=== PATIENT | female | born 1965 | race Hispanic/Latino ===

== ENCOUNTER 2019-08-22 17:30 | Emergency (ER) | payer OTHER ==
[2019-08-22] MEDS ORDERED: LIDOCAINE (4%) 40 MG/ML TOPICAL SOLN 50 ML BOTTLE TP ONE (18:02)
[2019-08-22] MEDS ORDERED: SODIUM CHLORIDE 0.9% 500 ML 500 ML IV ONE (18:02)
[2019-08-22] MEDS ORDERED: METOCLOPRAMIDE 10 MG/2 ML INJ IV ONE (18:02)
[2019-08-22] MEDS ORDERED: diphenhydrAMINE 50 MG/ML VIAL IV ONE (18:02)
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
[2019-08-22 18:44] LABS: Hematocrit 42.1 % (30.3-42.9); Hemoglobin 14.4 gm/dl (10.1-14.3); Mean Corpuscular HGB Conc 34 % (30-34); Mean Corpuscular Volume 94 fl (79-97); Platelet Count 341 K/mm3 (140-440); Red Blood Count 4.49 M/mm3 (3.65-5.03); Red Cell Distribution Width 12.6 % (13.2-15.2)
[2019-08-22 18:52] LABS: INR 0.88 (0.87-1.13)
[2019-08-22 18:56] LABS: Albumin 4.6 g/dL (3.9-5); Calcium 10.1 mg/dL (8.4-10.2)
--- NOTE | 2019-08-22 19:51 | Cat Scan Report ---
CT HEAD WITHOUT CONTRAST INDICATION / CLINICAL INFORMATION: Headache. History of aneurysm. TECHNIQUE: All CT scans at this location are performed using CT dose reduction for ALARA by means of automated e xposure control. COMPARISON: None available. FINDINGS: HEMORRHAGE: No evidence of intracranial hemorrhage or extra-axial fluid collection. EXTRA-AXIAL SPACES: Cortical sulci, sylvian fissures and basilar cisterns have an unremarkable appear ance. VENTRICULAR SYSTEM: The ventricular system is of normal size and configuration. CEREBRAL PARENCHYMA: An area of encephalomalacia is observed along the inferior aspect of the right f rontal lobe. The appearance suggests a posttraumatic etiology. Several punctate, dense intracranial c alcifications are identified. These are present in the left superior frontal sulcus and along the pos terior margin of the frontal horn of the left lateral ventricle. These may represent postinflammatory changes. Is there history of cysticercosis There is no indication of recent infarction. MIDLINE SHIFT OR HERNIATION: There is no mass effect. CEREBELLUM / BRAINSTEM: Brainstem and cerebellum have an unremarkable appearance. INTRACRANIAL VESSELS:No abnormalities are identified on this noncontrast head CT. ORBITS: visualized portions of the orbits have an unremarkable appearance. SOFT TISSUES of HEAD: No significant abnormality. CALVARIUM: Evaluation of bone windows reveals no abnormalities. PARANASAL SINUSES / MASTOID AIR CELLS: Paranasal sinuses are free from inflammatory mucosal disease. Mastoid air cells are normally pneumatized. ADDITIONAL FINDINGS: Patient provides history of intercranial aneurysm. There is no indication of ane urysm surgery. There is no evidence of an aneurysm has been treated by endovascular coiling. IMPRESSION: 1. Evidence of remote brain injury right frontal lobe. The Location of this finding suggests this is related to remote trauma. Correlation with clinical history is advised. 2. Several dense intracranial calcifications are noted as described above. 3. No acute intracranial abnormalities are identified.. Signer Name: Lan Fong MD Signed: 08/22/2019 7:47 PM Workstation Name: [id number]
--- NOTE | 2019-08-22 20:34 | Cat Scan Report ---
CTA head with intravenous contrast CLINICAL HISTORY: MAIN: ureña, hx of aneurysm 100cc of omnipaque 350 TECHNIQUE: 0.625 mm thick contiguous axial scans were obtained from the skull base to the skull vertex during r apid bolus administration of intravenous contrast material. Multiplanar reconstructions were produced in the coronal and sagittal planes. In addition 3 plane MIP instructions were produced and reviewed for this report. The axial source images and reconstructed images were reviewed for this report. CONTRAST DOSE REPORT: Omnipaque 350: 100 ml administered intravenously. All CT scans at this location are performed using CT dose reduction for ALARA by means of automated e xposure control. FINDINGS: Internal carotid arteries:Reyna, cavernous, opthalmic, clinoid and supraclinoid segments of the ICAs have an unremarkable appearance. Middle cerebral arteries: Symmetrical appearing M1 segments are noted bilaterally. No abnormalities a re seen along the course of the insular or opercular branches of the middle cerebral arteries. Anterior cerebral arteries: Bilaterally symmetrical A1 segments of the anterior cerebral arteries are noted. Anterior communicating artery is not clearly demonstrated. A too segments and pericallosal po rtions of the anterior cerebral arteries have an unremarkable appearance. Vertebral arteries: Balanced vertebral arteries both contribute to the basilar artery origin. Basilar artery: Basilar artery has an unremarkable appearance. Posterior cerebral arteries: origin of the right posterior cerebral arteries incidentally noted . Posterior cerebral arteries have an otherwise unremarkable appearance. Dural sinuses: Dural venous sinuses are well demonstrated on this exam. There is no evidence of dural sinus thrombosis. IMPRESSION: 1. No significant abnormality on CTA head. Patient has a history of aneurysm. I do not identify an an eurysm on this examination. Signer Name: Lan Fong MD Signed: 08/22/2019 8:30 PM Workstation Name: [id number]
--- NOTE | 2019-08-22 20:39 | Cat Scan Report ---
CTA neck without and with intravenous contrast material CLINICAL HISTORY: MAIN: ureña, hx of aneurysm 100cc of omnipaque 350 TECHNIQUE: Following acquisition of a timing bolus 0.625 mm thick contiguous axial scans were obtained from aort ic arch to the skull base during rapid bolus intravenous contrast infusion. In addition to evaluation of axial source images multiplanar reconstructions were produced and reviewed for this report. 3 thuan ne MIP reconstructions were produced and reviewed. FINDINGS: Thoracic aorta:No abnormalities are identified along the course of the thoracic aorta..The origins of the great vessels have an unremarkable appearance. Brachiocephalic artery, left common carotid arter y origin and left subclavian artery all have an unremarkable appearance. Right carotid artery:No abnormalities are seen along the course of the RCCA, at the right carotid bif urcation or along the cervical portions of the MARI. Left carotid artery: No abnormalities are noted along the course of the left common carotid artery, a t the left carotid bifurcaiton or along th ethe course of the cervical segments of the LICA. Posterior circulation:The vertebral arteries have an unremarkable appearance. Both vertebral arteries contribute to the basilar artery origin. The basilar artery has an unremarkable appearance. The degree of stenosis, if any, is determined utilizing NASCET like criteria. In this case there is no indication of hemodynamically significant stenosis at the carotid bifurcations or elsewhere. Evaluation of the nonvascular soft tissue structures reveal no abnormality. There is no indication of cervical lymphadenopathy. No abnormalities are seen along the course of the airway. Visualized porti ons of the parotid glands and the submandibular salivary glands have a normal appearance. Thyroid gla nd has a normal appearance. Evaluation of the lung apices reveals no evidence of lung nodule or infil trate. Evaluation of the cervical spine is remarkable for degenerative changes at the C5-6 level where loss of disc height and anterior osteophyte formation are noted. IMPRESSION: 1. No abnormalities are identified on CTA neck. CTA neck. Contrast dose report: Omnipaque 350: 100 ml, administered intravenously All CT examinations performed at this facility utilize modulated dose reduction, iterative reconstruc tion or weight-based dosing, as appropriate, to obtain a radiation dose which is as low as can reason ably be achieved. Signer Name: Lan Fong MD Signed: 08/22/2019 8:34 PM Workstation Name: [id number]
[2019-08-22] MEDS ORDERED: fentaNYL 100 MCG/2 ML INJ IV ONE (20:46)
[2019-08-22] MEDS ORDERED: LIDOCAINE 2%/EPINEPHRINE 1:200,000 VIAL (20 ML) INFILTRATI ONE (20:46)
[2019-08-22] MEDS ORDERED: LIDOCAINE 2%/EPINEPHRINE 1:100,000 VIAL (20 ML) INFILTRATI ONE (20:47)
[2019-08-22] MEDS ORDERED: fentaNYL 100 MCG/2 ML INJ ONE (20:47)
--- NOTE | 2019-08-22 22:08 | Procedure Note ---
Date of procedure: 08/22/19 Pre-op diagnosis: headache Post-op diagnosis: same Position: sitting Anesthesia: 1 % Lidocaine Sedation: none Needle size: 22ga, 21 ga, 20 ga Needle length: 6 Interspace: L3-4 Number of attempts: 1 Opening pressure: not done Fluids mls collected: 8 Fluid description: clear Complications: No Patient tolerance: pt tolerated procedure well Comments: Anesthesia consulted to ED room 2 for lumbar wafer abrading machine tender after 2 failed attempts. Procedure performed by: RON INGRAM Condition: stable
[2019-08-22 22:11] VITALS: BP 99/58
[2019-08-22 22:20] LABS: Glucose,CSF 88 mg/dL
[2019-08-22 22:41] LABS: Appearance,CSF Clear
[2019-08-22 22:42] LABS: Appearance,CSF Clear; Red Blood Cell,CSF 3 /mm3 (0-0); Red Blood Cell,CSF 4 /mm3 (0-0); White Blood Cell,CSF 2 /mm3 (1-10); White Blood Cell,CSF 6 /mm3 (1-10)
[2019-08-22 23:03] LABS: Basophils CSF 0 %; Total Cells Counted 10 /mm3
[2019-08-22 23:05] LABS: Total Cells Counted 10 /mm3
[2019-08-22 23:06] LABS: Basophils CSF 0 %
== END 2019-08-23 | disposition home or self-care (01) ==
LOC: ED 17:30
DX: R51 Headache (principal); E11.9 Type 2 diabetes mellitus without complications; Z79.899 Other long term (current) drug therapy; Z87.820 Personal history of traumatic brain injury
CPT/HCPCS: 36415; 70450; 70496; 70498; 80053; 82550; 82947; 83735; 84160; 85027; 85610; 85730; 89051; 96374; 96375; 99284; J1200; J2765; J3010; J7040; Q9967

== ENCOUNTER 2020-07-09 16:43 | Emergency (ER) | payer OTHER ==
[2020-07-09 17:01] VITALS: BP 122/77
[2020-07-09] MEDS ORDERED: SODIUM CHLORIDE 0.9% 1000 ML 1,000 ML IV ONE (17:30)
[2020-07-09] MEDS ORDERED: ONDANSETRON 4 MG/2 ML INJ IV ONE (17:30)
[2020-07-09] MEDS ORDERED: MORPHINE 4 MG/1 ML INJ IV ONE (17:30)
--- NOTE | 2020-07-09 18:00 | Cat Scan Report ---
CT ABDOMEN AND PELVIS WITHOUT CONTRAST HISTORY: bilateral flank pain, left>right, radiates to abd. COMPARISON: None. TECHNIQUE: CT images of the abdomen and pelvis were obtained without administration of intravenous co ntrast. All CT scans at this location are performed using CT dose reduction for ALARA by means of au tomated exposure control. FINDINGS: Lungs/bones: Lung bases are clear. There are degenerative changes in the spine and pelvis with no ac shilo osseous abnormality. Abdomen/pelvis: There is no radiopaque urinary stone disease, mass, cyst, or hydronephrosis. The liver, gallbladder, spleen, pancreas, adrenals, and proximal GI tract appear unremarkable. Urinary bladder is unremarkable. No pelvic free fluid. No acute colonic abnormality identified. IMPRESSION: 1. No acute abnormality identified. Signer Name: Dioni Perez MD Signed: 07/09/2020 5:56 PM Workstation Name: [id number]
[2020-07-09 18:18] LABS: Basophils % (Auto) 0.3 % (0.0-1.8); Eosinophils # (Auto) 0.1 K/mm3 (0.0-0.4); Eosinophils % (Auto) 1.4 % (0.0-4.3); Hematocrit 38.9 % (30.3-42.9); Hemoglobin 13.2 gm/dl (10.1-14.3); Lymphocytes # (Auto) 2.9 K/mm3 (1.2-5.4); Lymphocytes % (Auto) 28.9 % (13.4-35.0); Mean Corpuscular HGB Conc 34 % (30-34); Mean Corpuscular Volume 95 fl (79-97); Monocytes # (Auto) 0.7 K/mm3 (0.0-0.8); Monocytes % (Auto) 6.8 % (0.0-7.3); Platelet Count 341 K/mm3 (140-440); Red Blood Count 4.11 M/mm3 (3.65-5.03); Red Cell Distribution Width 12.6 % (13.2-15.2)
--- NOTE | 2020-07-09 18:23 | Emergency Department Report ---
ED Abdominal Pain HPI - General Chief Complaint: Abdominal Pain Stated Complaint: STOMACH/BACK PAIN Time Seen by Provider: 07/09/20 17:18 Source: patient, family, production wood craftsman Mode of arrival: Ambulatory Limitations: Language Barrier - History of Present Illness Initial Comments: pts used as croatian interpretation with pts permission pt is a 54 yo female who presents to the ED with c/o bilateral flank pain that radiates to the abdomen that began two weeks ago. she states that the pain has worsened in the last few days. she has associated nausea. she denies any fever, v/d, urinary symptoms, abnormal vaginal discharge. she states she went to her PCP and they were concerned for nephrolithiasis and they sent her to have an outpatient CT but has not received her results, she presents to the ED due to continued pain. past abdominal surgical history of oopherectomy and salpinectomy due to ovarian cysts. no allergies to meds. Severity scale (0 -10): 7 - Related Data Previous Rx's Medication Instructions Recorded Last Taken Type Butalb/Acetamin/Caff 50-325-40 1 each PO Q4H PRN #15 tablet 08/22/19 Unknown Rx [Fioricet 50-325-40] Metoclopramide [Reglan] 10 mg PO QID PRN #20 tab 08/22/19 Unknown Rx Ondansetron [Zofran Odt] 4 mg PO Q8HR PRN #10 tab.rapdis 07/09/20 Unknown Rx traMADoL [Ultram 50 MG tab] 50 mg PO Q6HR PRN #10 tablet 07/09/20 Unknown Rx Allergies Allergy/AdvReac Type Severity Reaction Status Date / Time No Known Allergies Allergy Unverified 08/22/19 17:33 ED Review of Systems ROS: Stated complaint: STOMACH/BACK PAIN Other details as noted in HPI Comment: All other systems reviewed and negative ED Past Medical Hx - Past Medical History Previous Medical History?: Yes Additional medical history: ANEURYSM (brain) - Surgical History Past Surgical History?: Yes Additional Surgical History: ovaries removed - Social History Smoking Status: Never Smoker Substance Use Type: None - Medications Home Medications: Home Medications Medication Instructions Recorded Confirmed Last Taken Type Butalb/Acetamin/Caff 50-325-40 1 each PO Q4H PRN #15 tablet 08/22/19 Unknown Rx [Fioricet 50-325-40] Metoclopramide [Reglan] 10 mg PO QID PRN #20 tab 08/22/19 Unknown Rx Ondansetron [Zofran Odt] 4 mg PO Q8HR PRN #10 tab.rapdis 07/09/20 Unknown Rx traMADoL [Ultram 50 MG tab] 50 mg PO Q6HR PRN #10 tablet 07/09/20 Unknown Rx ED Physical Exam - General Limitations: Language Barrier General appearance: alert, in no apparent distress - Head Head exam: Present: atraumatic, normocephalic - Eye Eye exam: Present: normal appearance - ENT ENT exam: Present: mucous membranes moist - Respiratory Respiratory exam: Present: normal lung sounds bilaterally. Absent: respiratory distress, wheezes, rales, rhonchi, stridor, chest wall tenderness, accessory muscle use, decreased breath sounds, prolonged expiratory - Cardiovascular Cardiovascular Exam: Present: regular rate, normal rhythm, normal heart sounds. Absent: systolic murmur, diastolic murmur, rubs, gallop - GI/Abdominal GI/Abdominal exam: Present: soft, tenderness (mild generalized), normal bowel sounds. Absent: distended, guarding, rebound, rigid - Back Exam Back exam: Present: other (CVAT left greater than right ) - Neurological Exam Neurological exam: Present: alert, oriented X3 - Psychiatric Psychiatric exam: Present: normal affect, normal mood - Skin Skin exam: Present: warm, dry, intact ED Course Vital Signs 07/09/20 16:57 Temperature 98.1 F Pulse Rate 82 Respiratory 18 Rate Blood Pressure 122/77 O2 Sat by Pulse 99 Oximetry ED Medical Decision Making - Lab Data Result diagrams: 07/09/20 18:03 07/09/20 18:03 Lab Results 07/09/20 07/09/20 07/09/20 Range/Units 18:03 18:03 19:03 WBC 10.1 (4.5-11.0) K/mm3 RBC 4.11 (3.65-5.03) M/mm3 Hgb 13.2 (10.1-14.3) gm/dl Hct 38.9 (30.3-42.9) % MCV 95 (79-97) fl MCH 32 (28-32) pg MCHC 34 (30-34) % RDW 12.6 L (13.2-15.2) % Plt Count 341 (140-440) K/mm3 Lymph % (Auto) 28.9 (13.4-35.0) % [place] % (Auto) 6.8 (0.0-7.3) % Eos % (Auto) 1.4 (0.0-4.3) % Baso % (Auto) 0.3 (0.0-1.8) % Lymph # (Auto) 2.9 (1.2-5.4) K/mm3 [place] # (Auto) 0.7 (0.0-0.8) K/mm3 Eos # (Auto) 0.1 (0.0-0.4) K/mm3 Baso # (Auto) 0.0 (0.0-0.1) K/mm3 Seg Neutrophils % 62.6 (40.0-70.0) % Seg Neutrophils # 6.3 (1.8-7.7) K/mm3 Sodium 125 L (137-145) mmol/L Potassium 4.4 (3.6-5.0) mmol/L Chloride 92.8 L (98-107) mmol/L Carbon Dioxide 19 L (22-30) mmol/L Anion Gap 18 mmol/L BUN 13 (7-17) mg/dL Creatinine 1.0 (0.6-1.2) mg/dL Estimated GFR 58 ml/min BUN/Creatinine Ratio 13 % Glucose 130 H (65-100) mg/dL Calcium 9.8 (8.4-10.2) mg/dL Total Bilirubin 0.30 (0.1-1.2) mg/dL AST 19 (5-40) units/L ALT 12 (7-56) units/L Alkaline Phosphatase 84 (35-129) units/L Total Protein 7.4 (6.3-8.2) g/dL Albumin 4.5 (3.9-5) g/dL Albumin/Globulin Ratio 1.6 % Lipase 56 (13-60) units/L Urine Color Colorless (Yellow) Urine Turbidity Clear (Clear) Urine pH 5.0 (5.0-7.0) Ur Specific [place] 1.002 L (1.003-1.030) Urine Protein <15 mg/dl (Negative) mg/dL Urine Glucose (UA) Neg (Negative) mg/dL Urine Ketones Neg (Negative) mg/dL Urine Blood Mod (Negative) Urine Nitrite Neg (Negative) Urine Bilirubin Neg (Negative) Urine Urobilinogen < 2.0 (<2.0) mg/dL Ur Leukocyte Esterase Neg (Negative) Urine WBC (Auto) 1.0 (0.0-6.0) /HPF Urine RBC (Auto) < 1.0 (0.0-6.0) /HPF - Radiology Data Radiology results: report reviewed Ordering Physician: JESSEE YAN Date of Service: 07/09/20 Procedure(s): CT abdomen pelvis wo con Accession Number(s): [id number] cc: JESSEE YAN CT ABDOMEN AND PELVIS WITHOUT CONTRAST HISTORY: bilateral flank pain, left>right, radiates to abd. COMPARISON: None. TECHNIQUE: CT images of the abdomen and pelvis were obtained without administration of intravenous contrast. All CT scans at this location are performed using CT dose reduction for ALARA by means of automated exposure control. FINDINGS: Lungs/bones: Lung bases are clear. There are degenerative changes in the spine and pelvis with no acute osseous abnormality. Abdomen/pelvis: There is no radiopaque urinary stone disease, mass, cyst, or hydronephrosis. The liver, gallbladder, spleen, pancreas, adrenals, and proximal GI tract appear unremarkable. Urinary bladder is unremarkable. No pelvic free fluid. No acute colonic abnormality identified. IMPRESSION: 1. No acute abnormality identified. Signer Name: Dioni Perez MD Signed: 07/09/2020 5:56 PM Workstation Name: [id number] Transcribed By: JW Dictated By: Dioni Perez MD Electronically Authenticated By: Dioni Perez MD Signed Date/Time: 07/09/201755 DD/ 53 TD/TT: Ordering Physician: JESSEE YAN Date of Service: 07/09/20 Procedure(s): CT abdomen pelvis w con Accession Number(s): [id number] cc: JESSEE YAN CT ABDOMEN AND PELVIS WITH CONTRAST INDICATION / CLINICAL INFORMATION: flank pain, generalized abd pain. TECHNIQUE: Axial CT images were obtained through the abdomen and pelvis after IV contrast. All CT scans at this location are performed using CT dose reduction for ALARA by means of automated exposure control. COMPARISON: Prior noncontrast CT abdomen pelvis dated 07/09/2020 at 1740. FINDINGS: LOWER CHEST: Hypoventilatory changes are noted in the bilateral lower lobes with mild atelectasis. LIVER: No significant abnormality. GALLBLADDER: No significant abnormality. BILE DUCTS: No significant abnormality. PANCREAS: No significant abnormality. SPLEEN: No significant abnormality. ADRENALS: No significant abnormality. RIGHT KIDNEY / URETER: No significant abnormality. LEFT KIDNEY / URETER: No significant abnormality. STOMACH / SMALL BOWEL: No significant abnormality. COLON: No significant abnormality. APPENDIX: No significant abnormality. PERITONEUM: No free fluid. No free air. No fluid collection. LYMPH NODES: No significant adenopathy. AORTA / ARTERIES: No significant abnormality. IVC / VEINS: No significant abnormality. URINARY BLADDER: Distended urinary bladder. REPRODUCTIVE ORGANS: No significant abnormality. ADDITIONAL FINDINGS: Small stable fat-containing umbilical hernia. SKELETAL SYSTEM: No significant abnormality. IMPRESSION: 1. No significant acute abnormality. No significant interval change since the noncontrast CT study performed earlier today. Signer Name: Mac Villela MD Signed: 07/09/2020 7:40 PM Workstation Name: [id number] Transcribed By: Dictated By: MAC VILLELA Electronically Authenticated By: MAC VILLELA Signed Date/Time: 07/09/201939 DD/ 32 TD/TT: - Medical Decision Making pts used as croatian interpretation with pts permission pt is a 54 yo female who presents to the ED with c/o bilateral flank pain that radiates to the abdomen that began two weeks ago. she states that the pain has worsened in the last few days. she has associated nausea. she denies any fever, v/d, urinary symptoms, abnormal vaginal discharge. she states she went to her PCP and they were concerned for nephrolithiasis and they sent her to have an outpatient CT but has not received her results, she presents to the ED due to continued pain. past abdominal surgical history of oopherectomy and salpinectomy due to ovarian cysts. no allergies to meds. Vitals are normal. On exam patient has bilateral CVA tenderness left greater than right, mild generalized abdominal tenderness, no guarding, no rebound, no rigidity, normal bowel sounds, no peritoneal signs. Labs with mild dehydration, otherwise normal, given 1 L normal saline. UA without evidence of UTI. CT abdomen pelvis w/o contrast: 1. No acute abnormality identified. CT abd pelvis with IV contrast: 1. No significant acute abnormality. No significant interval change since the noncontrast CT study performed earlier today. Patient given medications while in the emergency department as she did not drive and symptoms improved and she was feeling better and ready to go home. 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 Patient be referred to GI. Patient given prescription for tramadol and Zofran. She is able to tolerate p.o. intake without difficulty. Advised patient please take medication as prescribed. increase your water intake. do not drive or operate heavy machinery while taking pain medication. follow up with a primary care doctor. follow up with a GI doctor. return to the emergency room for any new or worsening symptoms. Critical care attestation.: If time is entered above; I have spent that time in minutes in the direct care of this critically ill patient, excluding procedure time. ED Disposition Clinical Impression: Flank pain, Nausea Abdominal pain Qualifiers: Abdominal location: generalized Qualified Code(s): R10.84 - Generalized abdominal pain Disposition: TO HOME OR SELFCARE Is pt being admited?: No Does the pt Need Aspirin: No Condition: Stable Instructions: Abdominal Pain, Adult, [id number], Flank Pain, Adult, Abdominal Pain (ED) Additional Instructions: please take medication as prescribed. increase your water intake. do not drive or operate heavy machinery while taking pain medication. follow up with a primary care doctor. follow up with a GI doctor. return to the emergency room for any new or worsening symptoms. Prescriptions: traMADoL [Ultram 50 MG tab] 50 mg PO Q6HR PRN #10 tablet PRN Reason: Pain , Severe (7-10) Ondansetron [Zofran Odt] 4 mg PO Q8HR PRN #10 tab.rapdis PRN Reason: nausea Referrals: PRIMARY CARE, [Primary Care Provider] - 2-3 Days [facility] [Provider Group] - 2-3 Days Time of Disposition: 19:48 Print Language: OMANI
[2020-07-09 18:37] LABS: Albumin 4.5 g/dL (3.9-5); Calcium 9.8 mg/dL (8.4-10.2)
[2020-07-09 19:11] LABS: Bilirubin,Urine NEG (Negative); Blood,Urine MOD (Negative); Color,Urine Colorless (Yellow); Protein,Urine <15 mg/dL mg/dL (Negative); RBC,Urine < 1.0 /HPF (0.0-6.0); Urobilinogen,Urine < 2.0 mg/dL (<2.0)
--- NOTE | 2020-07-09 19:45 | Cat Scan Report ---
CT ABDOMEN AND PELVIS WITH CONTRAST INDICATION / CLINICAL INFORMATION: flank pain, generalized abd pain. TECHNIQUE: Axial CT images were obtained through the abdomen and pelvis after IV contrast. All CT scans at this location are performed using CT dose reduction for ALARA by means of automated exposure control. COMPARISON: Prior noncontrast CT abdomen pelvis dated 07/09/2020 at 1740. FINDINGS: LOWER CHEST: Hypoventilatory changes are noted in the bilateral lower lobes with mild atelectasis. LIVER: No significant abnormality. GALLBLADDER: No significant abnormality. BILE DUCTS: No significant abnormality. PANCREAS: No significant abnormality. SPLEEN: No significant abnormality. ADRENALS: No significant abnormality. RIGHT KIDNEY / URETER: No significant abnormality. LEFT KIDNEY / URETER: No significant abnormality. STOMACH / SMALL BOWEL: No significant abnormality. COLON: No significant abnormality. APPENDIX: No significant abnormality. PERITONEUM: No free fluid. No free air. No fluid collection. LYMPH NODES: No significant adenopathy. AORTA / ARTERIES: No significant abnormality. IVC / VEINS: No significant abnormality. URINARY BLADDER: Distended urinary bladder. REPRODUCTIVE ORGANS: No significant abnormality. ADDITIONAL FINDINGS: Small stable fat-containing umbilical hernia. SKELETAL SYSTEM: No significant abnormality. IMPRESSION: 1. No significant acute abnormality. No significant interval change since the noncontrast CT study pe rformed earlier today. Signer Name: Ney Evans MD Signed: 07/09/2020 7:40 PM Workstation Name: [id number]
== END 2020-07-09 20:19 | disposition home or self-care (01) ==
LOC: ED 16:43
DX: R10.9 Unspecified abdominal pain (principal); R11.0 Nausea; Z98.890 Other specified postprocedural states; Z79.899 Other long term (current) drug therapy
CPT/HCPCS: 36415; 74176; 74177; 80053; 81001; 83690; 85025; 96361; 96374; 96375; 99284; J2270; J2405; J7030; Q9967